=== PATIENT | male | born 1940 | race Caucasian/White ===

== ENCOUNTER → 2017-03-28 | Outpatient (CLI) | payer MEDICARE, OTHER ==
[~2017-03-28] MED LIST: ASPIR-TRIN325 M1 PO; Ambien PO; CARDURA4 MG PO; DILAUDID4 MG PO; DURAGESIC50 MCG TD; FEOSOL325 MG PO; NEURONTIN300 MG PO; PERCOCET 5/31 TABLET PO; SENOKOT S,PE1 TABLET PO; Tenormin PO; Xanax PO
== END | disposition home or self-care (01) ==
LOC: CDC 12:26
DX: D49.4 Neoplasm of unspecified behavior of bladder (principal); R94.31 Abnormal electrocardiogram [ECG] [EKG]
CPT/HCPCS: 93000